=== PATIENT | male | born 1965 | race Two or more races ===

== ENCOUNTER 2022-12-27 11:54 | Emergency (ER) | payer OTHER ==
[~2022-12-27] VITALS: Ht 177.8 cm; Wt 81.6 kg
== END 2022-12-27 14:16 | disposition home or self-care (01) ==
LOC: ER 11:54
DX: S01.81XA Laceration without foreign body of other part of head, initial encounter (principal); W45.8XXA Other foreign body or object entering through skin, initial encounter; Y93.89 Activity, other specified; Y92.89 Other specified places as the place of occurrence of the external cause; Y99.9 Unspecified external cause status; I10 Essential (primary) hypertension; E11.9 Type 2 diabetes mellitus without complications